=== PATIENT | male | born 1995 | race Caucasian/White ===

== ENCOUNTER 2018-01-12 09:22 | Emergency (ER) | payer OTHER ==
[~2018-01-12] VITALS: Ht 177.8 cm; Wt 72.6 kg
[2018-01-12] MEDS ORDERED: NORCO 5-325 TA1 EACH PO (10:33)
[2018-01-12 11:00] VITALS: BP 143/73
== END 2018-01-12 11:12 | disposition home or self-care (01) ==
LOC: M.ERS 09:22
DX: S86.812A Strain of other muscle(s) and tendon(s) at lower leg level, left leg, initial encounter (principal); M25.462 Effusion, left knee; X50.1XXA Overexertion from prolonged static or awkward postures, initial encounter; Y93.89 Activity, other specified; Y92.89 Other specified places as the place of occurrence of the external cause; Y99.8 Other external cause status